=== PATIENT | female | born 1955 | race Caucasian/White ===

== ENCOUNTER → 2017-10-03 07:19 | Outpatient (CLI) | payer OTHER, SELFPAY ==
[2017-10-03 13:31] LABS: Alanine Aminotransferase 22 U/L (12-78); Albumin Level 3.4 gm/dL (3.4-5.0); Alkaline Phosphatase 124 U/L (46-116); Anion Gap 11.7 mEq/L (5-15); Aspartate Amino Transferase 10 U/L (15-37); Bilirubin,Total 0.3 mg/dL (0.2-1.0); Blood Urea Nitrogen 5 mg/dL (7-18); Calcium 8.5 mg/dL (8.5-10.1); Carbon Dioxide 27 mmol/L (21.0-32.0); Chloride 105 mmol/L (98-107); Chol/HDL Ratio 6.4 (1-3.5); Cholesterol 210 mg/dL (140-200); Creatinine,Serum 0.65 mg/dL (0.55-1.02); Estimated Glomerular Filt Rate 93 ml/min (>60); GFR (African American) 112 ML/MIN (>60); Globulin 3.5 gm/dl (1.3-3.2); Glucose 110 mg/dL (74-106); HDL Cholesterol 33 mg/dL (29-89); LDL Cholesterol 150 mg/dL (0-130); Potassium 3.7 mmoL/L (3.5-5.1); Sodium 140 mmol/L (136-145); Total Protein,Serum 6.9 gm/dL (6.4-8.2); Triglycerides 135 mg/dL (30-200); VLDL Cholesterol 27 mg/dL (0-40)
[2017-10-04 10:55] LABS: Vitamin B12 429 pg/mL (232-1245); Vitamin D 25 Hydroxy 19.3 ng/mL (30.0-100.0)
== END ==
PROVIDERS: PCP Nurse Practitioner Family; Visit Provider Nurse Practitioner Family
DX: E53.8 Deficiency of other specified B group vitamins (principal); E78.5 Hyperlipidemia, unspecified; E55.9 Vitamin D deficiency, unspecified; Z00.00 Encounter for general adult medical examination without abnormal findings
CPT/HCPCS: 36415; 80053; 80061; 82607; 82652

== ENCOUNTER → 2017-10-14 16:09 | Outpatient (CLI) | payer OTHER, SELFPAY ==
--- NOTE | 2017-10-14 16:15 | MM_ITS ---
MM Dig screening mamm BI w/CAD CAD Screening COMPARISON: Digital mammograms 06/14/2015 and 09/14/2016 INDICATION: There is no personal or family history of breast cancer. There is been previous biopsy left breast. There are scattered benign-appearing calcifications in each breast. There are 2 biopsy clips left breast. There is no suspicious lesion and there are no suspicious microcalcifications. TECHNIQUE: Standard CC and MLO images were obtained. R2 CAD reviewed. FINDINGS: Fibrofatty parenchyma with no suspicious lesion seen IMPRESSION: BI-RADS Category: 2 Benign Finding(s) RECOMMENDED FOLLOW-UP: 1YR - 1 YEAR FOLLOW-UP (A letter has been sent to the patient regarding results of the study.)
== END ==
PROVIDERS: Family Provider Internal Medicine Adolescent Medicine; PCP Nurse Practitioner Family; Visit Provider Internal Medicine Adolescent Medicine
DX: Z12.31 Encounter for screening mammogram for malignant neoplasm of breast (principal)
CPT/HCPCS: 77067

== ENCOUNTER → 2018-09-26 10:54 | Outpatient (CLI) | payer OTHER, SELFPAY ==
[2018-09-26 14:18] LABS: Troponin I < 0.02 ng/ml (0.00-0.06)
[2018-09-26 14:22] LABS: Alanine Aminotransferase 21 U/L (12-78); Albumin Level 3.7 gm/dL (3.4-5.0); Albumin/Globulin Ratio 0.9 (1.1-1.8); Alkaline Phosphatase 147 U/L (46-116); Anion Gap 14.7 mEq/L (5-15); Aspartate Amino Transferase 12 U/L (15-37); Bilirubin,Total 0.3 mg/dL (0.2-1.0); Blood Urea Nitrogen 7 mg/dL (7-18); Calcium 9.3 mg/dL (8.5-10.1); Carbon Dioxide 25 mmol/L (21.0-32.0); Chloride 103 mmol/L (98-107); Cholesterol 229 mg/dL (140-200); Creatinine,Serum 0.64 mg/dL (0.55-1.02); Estimated Glomerular Filt Rate 94 ml/min (>60); GFR (African American) 114 ML/MIN (>60); Globulin 3.9 gm/dl (1.3-3.2); Glucose 112 mg/dL (74-106); HDL Cholesterol 38 mg/dL (29-89); LDL Cholesterol 158 mg/dL (0-130); Potassium 3.7 mmoL/L (3.5-5.1); Sodium 139 mmol/L (136-145); Thyroid Stimulating Hormone 0.47 uIU/ml (0.358-3.740); Total Protein,Serum 7.6 gm/dL (6.4-8.2); Triglycerides 167 mg/dL (30-200); VLDL Cholesterol 33 mg/dL (0-40)
== END ==
PROVIDERS: PCP Nurse Practitioner Family; Visit Provider Nurse Practitioner Family
DX: Z00.00 Encounter for general adult medical examination without abnormal findings (principal); M25.512 Pain in left shoulder; R42 Dizziness and giddiness; E04.1 Nontoxic single thyroid nodule
CPT/HCPCS: 36415; 80053; 80061; 84443; 84484

== ENCOUNTER → 2018-10-01 06:44 | Outpatient (CLI) | payer OTHER, SELFPAY ==
--- NOTE | 2018-10-01 06:48 | NM_ITS ---
History and Indications: Hypertension, hyperlipidemia, tobacco use, chest pain, palpitations and fatigue Procedure: Patient exercised on Andrew protocol 5 minutes and 15 seconds, resting heart rate was 69 bpm resting blood pressure 130/74, with exercise maximum heart rate achieved was 1 47 bpm which is greater than 85% of the maximum predicted heart rate and a blood pressure was 190/72. Test was started due to shortness of breath patient denied complained of chest pain. Patient has adequate exercise capacity achieved 7mets of workload on treadmill, the blood pressure response to exercise was adequate. Electrocardiogram: Resting echocardiogram showed sinus rhythm, with exercise there is less than 1.[address] segment depression noted from the baseline EKG. The EKG portion of the exercise Myoview is negative for ischemia. Cardiac stress and resting SPECT images: Cardiac stress and resting SPECT images were obtained using technetium 99 Myoview 32.5 mCi at stress and 10.6 mCi at rest, Gated SPECT for analysis of segmental wall motion and calculation of the ejection fraction also done. Stress and resting SPECT images show uniform myocardial activity without segmental perfusion abnormality, computer derived ejection fraction is over 65% with no regional wall motion abnormality, right ventricle is normal size and contractility. Conclusion: 1. The EKG portion of the site Myoview is negative for ischemia, patient has adequate exercise capacity achieved 7mets record on treadmill, the blood pressure response to exercise was adequate, there was no exercise-induced chest discomfort. 2. No scintigraphic evidence of reversible ischemia seen at this level of exercise, computer derived ejection fraction is over 65% with no regional wall motion abnormality, right ventricle is normal size and contractility. 3. Normal exercise Myoview study.
--- NOTE | 2018-10-01 09:39 | HMH.ITSHM ---
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 []LOSARTAN ATORVASTATIN
== END ==
PROVIDERS: PCP Nurse Practitioner Family; Visit Provider Nurse Practitioner Family
DX: M25.512 Pain in left shoulder (principal); R42 Dizziness and giddiness; I10 Essential (primary) hypertension; E78.5 Hyperlipidemia, unspecified
CPT/HCPCS: 78452; 93017; A9502

== ENCOUNTER → 2019-03-05 09:13 | Outpatient (CLI) | payer OTHER, SELFPAY ==
--- NOTE | 2019-03-05 09:30 | US_ITS ---
PROCEDURE: US GALLBLADDER CLINICAL INDICATION: NAUSEA AND VOMITING Mid abdominal pain with nausea COMPARISON: CT ABDOMEN PELVIS W CON from 02/27/2019 FINDINGS: Gallbladder: The gallbladder wall is thickened measuring up to 5 mm. A thin rim of decreased echogenicity is present along the gallbladder wall and may be due to edema versus a minimal amount of pericholecystic fluid. No shadowing stones are apparent. There is a small polyp within the gallbladder and a small amount of sludge. Common bile duct is normal at 3 mm. Liver: Small hyperechoic focus is present in the left lobe of the liver at 14 mm and could be due to a small hemangioma. Pancreas: Unremarkable/Not well seen Right kidney: Unremarkable appearing. No hydronephrosis. IMPRESSION: Gallbladder wall thickening with a small amount sludge and a small gallbladder polyp. Dictated by: Tan Hollingsworth MD 03/05/2019 17:40 Signed by: <Electronically signed by Tan Hollingsworth MD in [place]> 03/05/2019 17:40
== END ==
PROVIDERS: PCP Internal Medicine Adolescent Medicine; Visit Provider Internal Medicine Adolescent Medicine
DX: R11.2 Nausea with vomiting, unspecified (principal)
CPT/HCPCS: 76705

== ENCOUNTER → 2019-05-08 13:15 | Outpatient (CLI) | payer OTHER, SELFPAY ==
--- NOTE | 2019-05-08 13:18 | MM_ITS ---
PROCEDURE: MM DIG SCREENING MAMM BI W/CAD Patient Age:63Y CLINICAL INDICATION: SCREENING but no hormones, no new complaints. Noncontributory family history. 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 R2 CAD reviewed. FINDINGS: Right breast. Ovoid slightly lobulated nodule again seen at the upper-outer quadrant the right breast but it has become more evident and slightly denser compared to prior studies at this point does warrant cc, and MLO spot views along with right breast ultrasound to further evaluate. More likely benign features such as small cyst or intramammary node but warrants a distal views but it measures up to a a 0.6 mm length but; I note the patient has had a previous cyst aspiration of a similar appearing area right breast back in July 2015 There is a area of small loosely grouped calcifications at deep posterior margin seen on both MLO and CC images-it was present before and similar to , but these calcifications have become gradually more evident over the years over the years--most likely benign but suggest magnification CC and 90 degree spot views here as well when patient returns for better visualization but (these are likely similar etiology to the clusters of benign calcifications which have been previously biopsied on left) is Left breast:. No new findings of significant concern. We again see the clips from prior stereotactic biopsy. Also stable small clusters of dense calcifications similar to previous studies, which can be followed. No significant new mass or densities at the left breast. Follow-up left mammogram 1 year adequate IMPRESSION: RIGHT BREAST:-recommend additional mammogram views and ultrasound right breast to further evaluate what our are more likely benign features: 1. Ovoid density lateral right breast is slightly denser and slightly more evident.-Would benefit from additional spot views with subsequent ultrasound right breast.. 2. Also grouping of small calcifications deep right breast again noted.-fairly stable and most likely benign, but would benefit from magnification views , when patient returns as well LEFT BREAST: Stable. Follow-up in 1 year on left No new findings of significant concern -Previous biopsies left breast again noted, along with scattered stable clustered dense calcification again noted BI-RAD Category: 0 Need Additional Imaging Evaluation FOLLOW-UP: IMM Immediate Follow-up Recommended Spot views and ultrasound right breast (A letter has been sent to the patient regarding results of the study.) Min Dictated by: González Kay MD 05/12/2019 12:52 Electronically signed by González Kay MD in [place] 05/12/2019 12:52
== END ==
PROVIDERS: PCP Internal Medicine Adolescent Medicine; Visit Provider Internal Medicine Adolescent Medicine
DX: Z12.31 Encounter for screening mammogram for malignant neoplasm of breast (principal)
CPT/HCPCS: 77067

== ENCOUNTER → 2019-06-22 14:48 | Outpatient (CLI) | payer OTHER, SELFPAY ==
--- NOTE | 2019-06-22 14:54 | US_ITS ---
PROCEDURE: MM DIG MAMM DX UNILAT RT CAD CLINICAL INDICATION: ABNORMAL MAMM Follow-up abnormal mammogram COMPARISON: [facility] DIGITAL MAMM-SCREEN BILATERAL from 08/09/2010 [facility] DIG MAMM-SCREEN ROSALIO from 06/14/2015 DMDBAV DIG MAMM-DX ROSALIO W/AVWS W/CAD from 09/14/2016 [facility] MM Dig screening mamm BI w/CAD from 10/14/2017 MM DIG SCREENING MAMM BI W/CAD from 05/08/2019 US BREAST RT COMPLETE from 06/22/2019 TECHNIQUE: Problem solving views of the right breast along with right breast ultrasound FINDINGS: Spot-compression views of the right breast 1 skin demonstrate the oval density in the upper outer aspect of the right breast at 6 mm. This is somewhat obscured by overlying fibroglandular tissue obscuring the outline of the nodule. There is cluster of coarse calcification in the central aspect of the right breast. This appears benign. A cluster of calcifications also noted in the deep central aspect of the right breast probably benign not significantly changed. From 10/14/2017 but may have slightly increased from 09/14/2016. Continued follow-up recommended in Right breast ultrasound: There is a 6 by 7 mm cyst at 10 o'clock region of the right breast corresponding to the nodule seen on mammogram. IMPRESSION: Nodule within the upper outer aspect of the right breast appears to represent a cyst. Calcifications are present in the deep inferior aspect of the right breast probably benign. Recommend six-month follow-up with Mag views BI-RAD Category: 3 Probably Benign Finding Short Term Follow-up FOLLOW-UP: 6M 6Month Follow-up (A letter has been sent to the patient regarding results of the study.) Dictated by: Tan Hollingsworth MD 06/27/2019 11:12 Electronically signed by Tan Hollingsworth MD in [place] 06/27/2019 11:12
== END ==
PROVIDERS: PCP Internal Medicine Adolescent Medicine; Visit Provider Internal Medicine Adolescent Medicine
DX: R92.8 Other abnormal and inconclusive findings on diagnostic imaging of breast (principal)
CPT/HCPCS: 76641; 77065

== ENCOUNTER → 2019-06-23 13:36 | Outpatient (CLI) | payer OTHER, SELFPAY ==
--- NOTE | 2019-06-23 13:57 | ECG_ITS ---
APPROVED REPORT Exam: Resting ECG HR:66 bpm ECG Measurements Heart Rate 66 AXES DE 178 P 72 QRSd 66 QRS 52 QT 388 T 49 QTc 406 <Conclusion> Normal sinus rhythm late r wave progression Abnormal ECG Electronically signed by : Emil Spear, 06/23/2019 14:09:23
[2019-06-23 14:50] LABS: Basophils % 0.4 % (0.1-2.0); Eosinophils # 0.2 K/mm3 (0.0-0.4); Eosinophils % 1.9 % (0.1-12.0); Hematocrit 42.7 % (37.0-47.0); Hemoglobin 13.8 g/dL (12.2-16.2); Lymphocytes # 4.6 K/mm3 (0.7-4.5); Mean Corpuscular HGB Conc 32.4 g/dL (31.8-35.4); Mean Corpuscular Hemoglobin 30.8 pg (27.0-31.2); Mean Platelet Volume 8.3 fl (7.4-10.4); Monocytes # 0.5 K/mm3 (0.1-1.0); Monocytes % 4.9 % (1.7-9.3); Neutrophils # 4.1 K/mm3 (1.8-7.8); Neutrophils % 43.8 % (37.0-80.0); Platelet Count 379 K/mm3 (142-424); Red Blood Count 4.49 M/mm3 (4.20-5.40); Red Cell Distribution Width 12.4 % (11.5-17.5); White Blood Count 9.3 K/mm3 (4.8-10.8)
[2019-06-23 15:15] LABS: Alanine Aminotransferase 14 U/L (12-78); Albumin Level 3.6 gm/dL (3.4-5.0); Alkaline Phosphatase 136 U/L (46-116); Aspartate Amino Transferase 6 U/L (15-37); Bilirubin,Total 0.2 mg/dL (0.2-1.0); Blood Urea Nitrogen 5 mg/dL (7-18); Carbon Dioxide 29 mmol/L (21.0-32.0); Chloride 104 mmol/L (98-107); Creatinine,Serum 0.69 mg/dL (0.55-1.02); Estimated Glomerular Filt Rate 86 ml/min (>60); GFR (African American) 104 ML/MIN (>60); Globulin 3.6 gm/dl (1.3-3.2); Glucose 101 mg/dL (74-106); Sodium 142 mmol/L (136-145); Total Protein,Serum 7.2 gm/dL (6.4-8.2)
== END ==
PROVIDERS: Visit Provider Surgery
DX: K81.9 Cholecystitis, unspecified (principal)
CPT/HCPCS: 36415; 80053; 85025; 93005

== ENCOUNTER → 2019-12-30 13:02 | Outpatient (CLI) | payer OTHER, SELFPAY ==
--- NOTE | 2019-12-30 13:09 | MM_ITS ---
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 No change in the benign-appearing nodule lateral aspect of the right breast. Stable cluster of calcifications in the inferior aspect of the right. Resume screening exam June 2020 IMPRESSION: BI-RAD Category: 2 Benign Finding(s) FOLLOW-UP: 6M 6Month Follow-up (A letter has been sent to the patient regarding results of the study.) Dictated by: Tan Hollingsworth MD 01/15/2020 12:44 Electronically signed by Tan Hollingsworth MD in [place] 01/15/2020 12:44
== END ==
PROVIDERS: PCP Internal Medicine Adolescent Medicine; Visit Provider Internal Medicine Adolescent Medicine
DX: R92.8 Other abnormal and inconclusive findings on diagnostic imaging of breast (principal)
CPT/HCPCS: 77061; 77065; G0279

== ENCOUNTER → 2020-01-04 09:30 | Outpatient (CLI) | payer OTHER, SELFPAY ==
--- NOTE | 2020-01-04 09:33 | US_ITS ---
PROCEDURE: US BREAST RT COMPLETE CLINICAL INDICATION: ABN MAMM COMPARISON: US BREAST RT COMPLETE from 06/22/2019 FINDINGS: 5 mm complicated cyst at 9 o'clock. 7 mm complicated cyst at 10 o'clock which may correspond to the mammographic abnormality.. No suspicious lesions. IMPRESSION: Complicated cyst 9 and 10 o'clock. BI-RADS category 2 benign. Recommend resume screening mammogram June 2020 Dictated by: Tan Hollingsworth MD 01/15/2020 12:46 Electronically signed by Tan Hollingsworth MD in [place] 01/15/2020 12:46
== END ==
PROVIDERS: PCP Internal Medicine Adolescent Medicine; Visit Provider Internal Medicine Adolescent Medicine
DX: R92.8 Other abnormal and inconclusive findings on diagnostic imaging of breast (principal)
CPT/HCPCS: 76641

== ENCOUNTER → 2022-01-23 07:51 | Outpatient (CLI) | payer MEDICARE, SELFPAY ==
--- NOTE | 2022-01-23 07:55 | XR_ITS ---
FINAL REPORT TECHNIQUE: Bone densitometry calculations of the lumbar spine and both hips were obtained. CLINICAL HISTORY: .POST MENOPAUSAL FINDINGS: DEXA BONE DENSITY AXIAL SKELETON Using L1-4, the bone mineral density of the spine is 0.745 g/cm2, corresponding to T-score of -2.7. Using the left hip, the bone mineral density of the femoral neck is 0.595 g/cm2, corresponding to a T-score of -2.8. Using the right hip, the bone mineral density of the femoral neck is 0.630 g/cm2, corresponding to a T-score of -2.6. NOTE: T-score: Standard deviation compared with peak bone mass of young adult mean. *Following the recommendations of the International Society of Bone Densitometry, classification of hip BMD is based on the lower of two T-scores; total hip or femoral neck. IMPRESSION: Osteoporosis: Lowest T-score is at or below -2.5. This patient's T-score meets the World Health Organization criteria for osteoporosis. Reviewed, Interpreted and Dictated by Wesley Cash MD Transcribed by Roslyn Moreno Authenticated and [facility]
--- NOTE | 2022-01-23 07:56 | MM_ITS ---
PROCEDURE INFORMATION: Exam: MG Bilateral Screening 3D Mammography Exam date and time: 01/23/2022 8:33 AM Age: 66 years old Clinical indication: Screening examination. No family history of breast cancer. TECHNIQUE: Imaging protocol: Bilateral Screening tomosynthesis and 2D mammography including computer-aided detection (CAD) when performed. COMPARISON: 1. MG MM DIG MAMM DX UNILAT RT CAD 12/30/2019 1:13 PM 2. MG MM DIG MAMM DX UNILAT RT CAD 06/22/2019 3:17 PM 3. MG MM DIG SCREENING MAMM BI W/CAD 05/08/2019 1:31 PM 4. MG [facility] MM Dig screening mamm BI w/CAD 10/14/2017 4:22 PM FINDINGS: MAMMOGRAPHY: Breast composition: There are scattered areas of fibroglandular density. Mass: No suspicious mass. Architectural distortion: None. Calcifications: No suspicious calcifications. Asymmetric density: None. Skin thickening: None. Axillary adenopathy: None. Other: Left biopsy clips. IMPRESSION: No mammographic evidence of malignancy. Annual screening is recommended unless otherwise clinically indicated. ASSESSMENT: BI-RADS Category 2: Benign
--- NOTE | 2022-01-23 07:57 | CT_ITS ---
FINAL REPORT CLINICAL HISTORY: H/O NICOTINE DEPENEDENCE current smoker 1ppd x30 years FINDINGS: Low-Dose Chest CT CTDI vol (mGy): 2.90 DLP (mGy-cm): 96.38 Axial images were obtained from the lung apex to the mid abdomen by computed tomography. Low-dose protocol was utilized. FINDINGS: CHEST: There is bulky calcification in the right lobe of the thyroid. There is no axillary adenopathy. There are a multitude of mildly enlarged mediastinal lymph nodes. Nodes measure up to 1.7 cm. The heart is proper size. There is no pericardial or pleural effusion. Limited images of the upper abdomen demonstrate a small sliding-type hiatal hernia. The gallbladder is absent.. Lung window images demonstrate coarse interstitial opacity in the periphery of both lungs. There are calcified granulomas in the left mid lung. There are a multitude of small noncalcified nodules in the periphery of both lungs measuring 4 mm are less. Nodules are particularly evident in the upper lobes. Reference nodules are in the right upper lobe on image 24 and periphery of the left upper lobe on image 24. IMPRESSION: Lung RADS category 2S. Recommend 12 month follow-up low-dose chest CT. Small nodules favored to be postinflammatory. Mild mediastinal adenopathy, favor reactive. Recommend follow-up in 1 year. Reviewed, Interpreted and Dictated by Wesley Cash MD Transcribed by Sebastian Caruso Authenticated and [facility]
== END ==
PROVIDERS: PCP Internal Medicine Adolescent Medicine; Visit Provider Nurse Practitioner Family
DX: Z12.31 Encounter for screening mammogram for malignant neoplasm of breast (principal); Z78.0 Asymptomatic menopausal state; Z87.891 Personal history of nicotine dependence; Z12.2 Encounter for screening for malignant neoplasm of respiratory organs
CPT/HCPCS: 71271; 77063; 77067; 77080

== ENCOUNTER → 2022-12-05 07:45 | Outpatient (CLI) | payer MEDICARE, SELFPAY ==
--- NOTE | 2022-12-05 07:52 | CT_ITS ---
FINAL REPORT TECHNIQUE: Axial images were obtained from the lung apex to the mid abdomen by computed tomography. This study was performed with techniques to keep radiation doses as low as reasonably achievable (ALARA). Individualized dose reduction techniques using automated exposure control or adjustment of mA and/or kV according to the patient's size were employed. CLINICAL HISTORY: current smoker, smoked for 35 years, smokes 3/4 pack per day, pt says has scar on one of her lungs from PNA when she was younger COMPARISON: 01/23/2022 FINDINGS: CHEST CT LOW DOSE CTDI vol (mGy): 2.90 DLP (mGy-cm): 96.38 There is a calcified right thyroid nodule which is stable. There are multiple, mildly enlarged mediastinal nodes which are stable. Findings are nonspecific, favor reactive. There is no axillary adenopathy. The heart is normal in size. There is no pericardial or pleural effusion. There are numerous, less than 5 mm bilateral pulmonary nodules and bilateral interstitial opacities. Findings are stable as compared to previous. No new mass or nodule is identified. There are calcified granulomas in the left upper lobe. The patient is status post cholecystectomy. IMPRESSION: Mild mediastinal adenopathy, stable. Bilateral pulmonary nodules and interstitial opacities, stable. Lung RADS category 2 S. Recommend 12 month follow-up low-dose chest CT. Reviewed, Interpreted and Dictated by Ricardo Jansen III, MD Transcribed by Pita Oconnell Authenticated and [facility] [place]
== END ==
LOC: RAD 07:45
PROVIDERS: PCP Internal Medicine Adolescent Medicine; Visit Provider Internal Medicine Adolescent Medicine
DX: Z87.891 Personal history of nicotine dependence; Z12.2 Encounter for screening for malignant neoplasm of respiratory organs
CPT/HCPCS: 71271; 77063; 77067

== ENCOUNTER → 2023-06-20 12:45 | Outpatient (CLI) | payer MEDICARE, SELFPAY ==
--- NOTE | 2023-06-20 12:47 | CA_ITS ---
FINAL REPORT TECHNIQUE: Color Doppler, duplex Doppler and compression sonography of the left lower extremity deep venous systems was performed. CLINICAL HISTORY: Left leg pain, anterior calf pain x 1 week. Denies trauma. HTN, smoker COMPARISON: None FINDINGS: There is no evidence of deep venous thrombosis from the level of the groin to the calf. The veins are patent and compressible. IMPRESSION: No evidence of deep venous thrombosis left lower extremity. Reviewed, Interpreted and Dictated by Ricardo Jansen III, MD Transcribed by Zoila Herrera Authenticated and . [facility]
--- NOTE | 2023-06-20 13:05 | XR_ITS ---
FINAL REPORT CLINICAL HISTORY: LEFT LEG PAIN ACUTE ANKLE PAIN FINDINGS: Left ankle Three views were obtained. There is no acute fracture or dislocation. There are mild degenerative changes. Small plantar calcaneal spur is identified. No soft tissue abnormality is identified. IMPRESSION: No acute process. Reviewed, Interpreted and Dictated by Ricardo Jansen III, MD Transcribed by Pita Oconnell Authenticated and [facility]
[2023-06-20 13:23] LABS: Basophils # 0.1 K/mm3 (0-0.2); Basophils % 0.7 % (0.1-2.0); Eosinophils # 0.2 K/mm3 (0.0-0.4); Eosinophils % 2.3 % (0.1-12.0); Hematocrit 42.4 % (37.0-47.0); Hemoglobin 14.4 g/dL (12.2-16.2); Lymphocytes # 2.9 K/mm3 (0.7-4.5); Lymphocytes % 38.1 % (10-50); Mean Corpuscular HGB Conc 33.9 g/dL (31.8-35.4); Mean Corpuscular Hemoglobin 32.5 pg (27.0-31.2); Mean Corpuscular Volume 95.9 fl (81-99); Mean Platelet Volume 8.4 fl (7.4-10.4); Monocytes # 0.5 K/mm3 (0.1-1.0); Monocytes % 5.9 % (1.7-9.3); Neutrophils # 4.1 K/mm3 (1.8-7.8); Platelet Count 333 K/mm3 (142-424); Red Blood Count 4.42 M/mm3 (4.20-5.40); Red Cell Distribution Width 12.7 % (11.5-17.5); White Blood Count 7.7 K/mm3 (4.8-10.8)
[2023-06-20 14:22] LABS: Alanine Aminotransferase 25 U/L (12-78); Albumin Level 4.1 g/dl (3.5-5.0); Albumin/Globulin Ratio 1.3 (1.1-1.8); Alkaline Phosphatase 119 U/L (38-126); Anion Gap 13.5 mEq/L (5-15); Aspartate Amino Transferase 27 U/L (14-36); Bilirubin,Total 0.3 mg/dl (0.2-1.3); Blood Urea Nitrogen 3 mg/dl (7-17); Calcium 8.8 mg/dl (8.4-10.2); Carbon Dioxide 23 mmol/L (22.0-30.0); Chloride 101 mmol/L (98-107); Chol/HDL Ratio 5.6 (1-3.5); Cholesterol 218 mg/dl (140-200); Estimated Glomerular Filt Rate 100 ml/min (>60); GFR (African American) 121 ML/MIN (>60); Globulin 3.1 g/dL (1.3-3.2); Glucose 131 mg/dl (74-100); HDL Cholesterol 39 mg/dl (40-60); Potassium 3.5 mmoL/L (3.5-5.1); Sodium 134 mmol/L (136-145); Total Protein,Serum 7.2 g/dl (6.3-8.2); Triglycerides 174 mg/dl (30-150); VLDL Cholesterol 35 mg/dL (0-40)
[2023-06-20 14:33] LABS: Direct LDL Cholesterol 145.44 mg/dL (100-129)
== END ==
LOC: RT 12:46
PROVIDERS: PCP Internal Medicine Adolescent Medicine; Visit Provider Internal Medicine Adolescent Medicine
DX: M79.605 Pain in left leg; E78.5 Hyperlipidemia, unspecified; M25.572 Pain in left ankle and joints of left foot
CPT/HCPCS: 36415; 73610; 80053; 80061; 85025; 93971